=== PATIENT | male | born 1995 | race Two or more races ===

== ENCOUNTER 2025-01-07 03:15 | Emergency (ER) | payer BC, SELFPAY ==
[2025-01-07 03:20] VITALS: BP 126/77; PULSE 97; RESP 19; TEMP 36.7; O2SAT 99
[2025-01-07] MEDS: FAMOTIDINE 20 MG TABLET 40 MG PO (04:03)
[2025-01-07] MEDS: ONDANSETRON ODT 4 MG TABRAP PO (04:04)
[2025-01-07] MEDS: DICYCLOMINE 10 MG CAPSULE PO (04:04)
--- NOTE | 2025-01-07 04:16 | PD.EDNV ---
Nausea/Vomit./Diarrhea-RME/HPI General Chief complaint: Abdominal Pain Stated complaint: ABD PAIN Time Seen by Provider: 01/07/25 03:35 Arrival date/time: 01/07/25 03:15 29M with no significant PMH presents to ED with 2 days of N/V, ab cramping, and non-bloody diarrhea. Mom has similar symptoms. Limitations: no limitations Related Data Allergies Allergy/AdvReac Type Severity Reaction Status Date / Time No Known Allergies Allergy Verified 01/07/25 03:21 Review of Systems Review of Systems Systems Reviewed: All systems reviewed, normal except as documented Constitutional Constitutional: Reports system reviewed and no additional complaints, except as documented, Denies fever(s) and Denies headache(s) ENT Ears, Nose, Mouth, and Throat: Denies disequilibrium and Denies headache(s) Cardiovascular Cardiovascular: Reports system reviewed and no additional complaints, except as documented, Denies chest pain and Denies dyspnea Respiratory Respiratory: Reports system reviewed and no additional complaints, except as documented, Denies cough and Denies dyspnea Gastrointestinal Gastrointestinal: Reports system reviewed and no additional complaints, except as documented, Reports as per HPI, Reports abdominal pain, Reports diarrhea, Reports nausea and Reports vomiting Neurologic Neurologic: Reports system reviewed and no additional complaints, except as documented, Denies confusion, Denies disequilibrium and Denies headache(s) Psychiatric Psychiatric: Denies confusion Past Medical History Social History SMOKING STATUS: Never smoker ED Exam General Limitations: Present no limitations General appearance: Present alert and in no apparent distress Head Head exam: Present atraumatic Eye Eye exam: Present normal appearance, PERRL and EOMI ENT ENT exam: Present normal exam, normal oropharynx and mucous membranes moist Neck Neck exam: Present normal inspection, full ROM and trachea midline Chest Chest inspection: Present normal inspection and symmetric chest wall rise Respiratory Respiratory exam: Present normal lung sounds bilaterally Cardiovascular Cardiovascular exam: Present regular rate, normal rhythm and normal heart sounds Abdominal Exam Abdominal exam: Present soft and normal bowel sounds Extremities Exam Extremities exam: Present normal inspection and full ROM Back Exam Back exam: Present normal inspection and full ROM Neurological Exam Neurological exam: Present alert, oriented X3 and CN II-XII intact Psychiatric Psychiatric exam: Present normal affect and normal mood Skin Skin exam: Present warm, dry, intact and normal color Course Quality Measures none Orders Category Date Time Status Dicyclomine [Bentyl] Med 01/07/25 03:36 Discontinued 10 mg PO X1 ONE Famotidine [Pepcid] Med 01/07/25 03:36 Discontinued 40 mg PO X1 ONE Ondansetron Odt [Zofran Odt] Med 01/07/25 03:36 Discontinued 4 mg PO X1 ONE Vital Signs Vital signs: Vital Signs Temperature 98.1 F 01/07/25 03:20 Pulse Rate 97 01/07/25 03:20 Respiratory Rate 19 01/07/25 03:20 Blood Pressure 126/77 01/07/25 03:20 Pulse Oximetry (%) 99 01/07/25 03:20 Oxygen Delivery Method Room Air 01/07/25 03:20 O2 at 99% on RA and WNLs Nausea/Vomiting/Diarrhea MDM Narrative MDM Narrative:: 29M with no significant PMH presents to ED with 2 days of N/V, ab cramping, and non-bloody diarrhea. Mom has similar symptoms. Physical exam reveals no ab tenderness. Patient is afebrile, calm, and alert. Patient data External records reviewed:: None Clinical information provided by:: patient Social determinants that could affect healthcare access:: none Patient has the following chronic illnesses:: nonenone How is presenting disease/condition affected by chronic disease/condition?: no chronic disease Evaluation data The following diagnostics were reviewed and interpreted by me:: other (specify) (none) Lab and/or radiology exams considered but not ordered:: not ordered Interpretation Summary: n/a Medications / Prescriptions Medications / Prescriptions considered but not ordered:: ordered Medication administrations:: Medication Administration History Discontinued Medications Dicyclomine HCl (Dicyclomine 10 Mg Capsule) 10 mg PO X1 ONE Stop: 01/07/25 03:37 Last Admin: 01/07/25 04:04 Dose: 10 mg Documented By: NASRIN Famotidine (Famotidine 20 Mg Tablet) 40 mg PO X1 ONE Stop: 01/07/25 03:37 Last Admin: 01/07/25 04:03 Dose: 40 mg Documented By: NASRIN Ondansetron HCl (Ondansetron Odt 4 Mg Tabrap) 4 mg PO X1 ONE; Protocol Stop: 01/07/25 03:37 Last Admin: 01/07/25 04:04 Dose: 4 mg Documented By: NASRIN above Consultations Consultation(s) initiated? (list below): No Diagnosis Nausea Differential Diagnosis: traveler's diarrhea, food poisoning, gastroenteritis, clostridium difficile infection, drug-induced nausea and vomiting and dehydration Most likely diagnosis given after review of the tests above:: gastroenteritis Admission Indicated Admission indicated?: not indicated Admission Request Was there a request for admission?: No Disposition Plan Disposition Plan: Discharge Discharge Attestation Discharge Attestation: The patient and all family members were given an opportunity to ask questions and understood the discharge instructions. Discharge instructions specifically effects, indications for sooner follow up or return to the emergency department, and the expected course of current diagnosis. Patient condition: Stable Discharge Plan Prescriptions/Referrals Referrals: No Primary/Family,Physician [Primary Care Provider] - In 1 week Patient/Caregiver Discharge Instructions Print Language: Moldovan
--- NOTE | 2025-01-07 05:02 | PD.EDRME ---
Rapid Medical Screening Exam RME Arrival date/time: 01/07/25 03:15 29M with no significant PMH presents to ED with 2 days of N/V, ab cramping, and non-bloody diarrhea. Mom has similar symptoms. Chief Complaint: Abdominal Pain Time Seen by Provider: 01/07/25 03:35 Vital signs: Vital Signs Temperature 98.1 F 01/07/25 03:20 Pulse Rate 97 01/07/25 03:20 Respiratory Rate 19 01/07/25 03:20 Blood Pressure 126/77 01/07/25 03:20 Pulse Oximetry (%) 99 01/07/25 03:20 Oxygen Delivery Method Room Air 01/07/25 03:20
[2025-01-07] MEDS: HYDROcodone/APAP 5/325 TABLET 1 TAB PO (05:06)
[2025-01-07 05:59] LABS: Basophils % (Auto) 0 % (0-2.5); Eosinophils # (Auto) 0.3 Thou/mm3 (0.0-0.5); Eosinophils % (Auto) 2 % (0-10); Hematocrit 39.5 % (41.0-53.0); Hemoglobin 14.1 g/dL (13.5-16.0); Immature Granulocytes % (Auto) 0 % (0-0); Immature Granulocytes Auto 0.06 Thou/mm3 (0.00-0.00); Lymphocytes # (Auto) 1.7 Thou/mm3 (1.0-4.8); Lymphocytes % (Auto) 12 % (10-50); Mean Corpuscular HGB Conc 35.7 g/dl (31.0-37.0); Mean Corpuscular Hemoglobin 29.4 pg (25.0-35.0); Mean Corpuscular Volume 82 fL (80-100); Monocytes # (Auto) 1.4 Thou/mm3 (0.0-0.8); Monocytes % (Auto) 10 % (0-12); Neutrophils # (Auto) 10.5 Thou/mm3 (1.8-7.7); Neutrophils % (Auto) 75 % (37-80); Nucleated Red Blood Cell % 0 /100 WBC (0); Platelet Count 292 Thou/mm3 (140-440); RDW Standard Deviation 37.5 fL (35.1-43.9); White Blood Count 13.9 Thou/mm3 (3.8-10.6)
[2025-01-07 06:06] LABS: Alanine Aminotransferase 43 U/L (10-49); Albumin, Serum 4.7 gm/dL (3.5-5.0); Albumin/Globulin Ratio 1.6 (1.2-2.2); Alkaline Phosphatase 105 U/L (46-116); Anion Gap 11 (7-16); Aspartate Amino Transferase 67 U/L (0-34); BUN/Creatinine Ratio 10 Ratio (12-20); Bilirubin,Total 0.7 mg/dL (0.3-1.2); Blood Urea Nitrogen 9 mg/dL (9-23); Calcium 9.1 mg/dL (8.3-10.6); Calcium (Corrected) 9.1 mg/dL (8.5-10.1); Carbon Dioxide 26.1 mMol/L (20.0-31.0); Chloride 105 mMol/L (98-107); Creatinine (Component) 0.9 mg/dL (0.6-1.3); Estimated Creatinine Clearance 115.2 mL/min (>60); Globulin 2.9 gm/dL (2.3-3.5); Glucose 102 mg/dL (74-106); Lipase 219 U/L (12-53); Osmolality,Calculated 281 (275-295); Potassium 3.2 mMol/L (3.4-5.1); Sodium 142 mMol/L (136-145); Total Protein 7.6 gm/dL (5.7-8.2); eGFR > 60 See Note
--- NOTE | 2025-01-07 06:42 | EDNOTE_ITS ---
ED Abdominal Pain RME/HPI General Chief Complaint: Abdominal Pain Stated complaint: ABD PAIN Time seen by provider: 01/07/25 03:35 Arrival date/time: 01/07/25 03:15 RME / HPI RME / HPI narrative: 01/07/25 03:15 29M with no significant PMH presents to ED with 2 days of N/V, ab cramping, and non-bloody diarrhea. Mom has similar symptoms. DR. JAEGER MAIN ED EVALUATION: 29 year old male with no significant medical history presents to the ED for evaluation of worsening abdominal pain. The patient reports that the pain began three days ago, initially described as cramping located most to the lower abdomen, and was associated with approximately 10 episodes of watery diarrhea. This morning, he woke from sleep with severe epigastric pain, described as aching and rated as severe. Accompanied by nausea and one episode of vomiting. His reports that the patient had a fever three days ago, but none in the last 24 hours. The patient denies black or bloody stools, chest pain, cough, or urinary symptoms. The patient admits to occasional alcohol use, most recent intake being several months ago. Related Data Allergies Allergy/AdvReac Type Severity Reaction Status Date / Time No Known Allergies Allergy Verified 01/07/25 03:21 Review of Systems Review of Systems Systems Reviewed: All systems reviewed, normal except as documented Past Medical History Past Medical History CARDIAC: Negative Cardiac Disorders or Congestive Heart Failure RESPIRATORY: Negative Chronic Obstructive Pulmonary Disease (COPD) or Asthma GENITOURINARY: Negative Renal Disease ENDOCRINE: Negative Diabetes Mellitus Type 1 or Diabetes Mellitus Type 2 HEMATOLOGIC: Negative Sickle Cell Disease Family History FAMILY HISTORY: Positive Family Cardiac Disorders; Negative Family Cancer Social History SMOKING STATUS: Never smoker ED Exam Narrative Physical exam: GENERAL APPEARANCE: AxOx4, no obvious distress, nontoxic appearing HEENT: NC, AT. MMM. EOMI, clear conjunctiva, oropharynx clear. NECK: Supple without lymphadenopathy. No stiffness or restricted ROM. HEART: Normal rate and regular rhythm, normal S1/S1, no m/r/g LUNGS: CTAB, moving air well. No crackles or wheezes are heard. ABDOMEN: Soft, nontender, nondistended with good bowel sounds heard. BACK: No midline C/T/L spine pain or deformity, No CVAT, no obvious deformity. EXTREMITIES: Without cyanosis, clubbing or edema. MUSCULOSKELETAL: FROM of all major joints, no chest tenderness NEUROLOGICAL: Grossly nonfocal. Alert and oriented, moving all 4 extremities. CN not formally tested but appear grossly intact. Skin: Warm and dry without any rash. Course Quality Measures none Orders Category Date Time Status CT Screening NOW Care 01/07/25 07:[address] abdomen pelvis w con Stat Exams 01/07/25 07:09 Completed CBC Stat Lab 01/07/25 05:30 Completed CMP [Comprehensive Metabolic Panel] Stat Lab 01/07/25 05:30 Completed Lipase Stat Lab 01/07/25 05:30 Completed Dicyclomine [Bentyl] Med 01/07/25 03:36 Discontinued 10 mg PO X1 ONE Famotidine [Pepcid] Med 01/07/25 03:36 Discontinued 40 mg PO X1 ONE HYDROcodone*/APAP 5/325 [Devine 5/325] Med 01/07/25 05:01 Discontinued 1 tab PO X1 ONE Ondansetron Odt [Zofran Odt] Med 01/07/25 03:36 Discontinued 4 mg PO X1 ONE Reevaluation(s) Reevaluation #1: Patient remains clinically stable throughout the emergency department visit. We reviewed all the results, analysis, and treatment plans. Patient is amenable to discharge. Strict return precautions were outlined. Patient was discharged in stable condition. Time: 10:55 Vital Signs Vital signs: Vital Signs Temperature 98.1 F 01/07/25 03:20 Pulse Rate 97 01/07/25 03:20 Respiratory Rate 19 01/07/25 03:20 Blood Pressure 126/77 01/07/25 03:20 Pulse Oximetry (%) 99 01/07/25 03:20 Oxygen Delivery Method Room Air 01/07/25 03:20 Pulse ox is 99% on room air which is adequate. Abdominal Pain MDM MDM Narrative MDM Narrative:: Jo Ann Yoon am scribing for and in the presence of Dr. Jaeger. 29 year old male with no significant past medical history who presents to the ED with worsening abdominal pain. Accompanied by approximately 10 episodes of watery diarrhea. This morning woke up with severe epigastric pain, accompanied by nausea and one episode of vomiting. Denies black or bloody stools. States he drinks alcohol once in a while and last consumed several months ago. On exam, the patient is in no acute distress, with no abdominal tenderness. Labs revealed elevated lipase at 219, as well as an elevated AST at 67. Given lab findings the possibility of pancreatitis was considered. CT abdomen/pelvis performed and was negative for pancreatitis. Patient was treated with famotidine, zofran, dicyclomine, and Devine with improvement in symptoms. Patient data External records reviewed:: None (No previous ED visits for review ) Clinical information provided by:: patient Social determinants that could affect healthcare access:: alcohol use (last used months ago ) Patient has the following chronic illnesses:: None How is presenting disease/condition affected by chronic disease/condition?: no chronic disease Evaluation data The following diagnostics were reviewed and interpreted by me:: lab results and radiology exam(s) Lab and/or radiology exams considered but not ordered:: None Interpretation Summary: Ordering Physician: Aric Jaeger MD Date of Service: 01/07/25 Procedure(s): CT abdomen pelvis w con Accession Number(s): [id number] cc: Aric Jaeger MD; Marty Stewart MD; NO PRIMARY/FAMILY,PHYSICIAN~ Examination: CT abdomen with intravenous contrast CT pelvis with intravenous contrast 2-D coronal reconstructions 2-D sagittal reconstructions Date and time of exam:January 07, 2025 0832 hours INDICATIONS: Abdominal pain epigastric pain and vomiting today. Elevated lipase on laboratory examination today CTDI: vol (mGy) 8.11 DLP: (mGycm) 521 Technique: Multiple axial sections of the abdomen and pelvis have been obtained. 64 slice high-resolution scanner used. 3 mm axial sections have been obtained, post intravenous injection 60 cc [id number] 2-D sagittal, coronal reconstructions obtained. Low dose protocols were performed. One or more of the following dose reduction techniques were used; automated exposure control, adjustment of the mA and/or KV according to patient size, use of iterative reconstruction technique. Findings: No focal liver or splenic lesions Contracted gallbladder No peripancreatic edema No extrahepatic biliary tract dilatation No renal or ureteral calculi, no hydronephrosis Aorta normal size Normal appendix A few loops of fluid distended small bowel in the lower abdomen Colonic diverticulosis, no diverticulitis Urinary bladder intact No prostatomegaly IMPRESSION: No peripancreatic edema Normal appendix Mild small bowel ileus Dictated By:Marty Stewart MD Signed By:<Electronically signed by Marty Stewart MD in OV>01/07/25 0948 Medications / Prescriptions Medications or Prescriptions considered but not ordered:: None Medication administrations:: Medication Administration History Discontinued Medications Hydrocodone Bitart/Acetaminophen (Hydrocodone/Apap 5/325 Tablet) 1 tab PO X1 ONE Stop: 01/07/25 05:02 Last Admin: 01/07/25 05:06 Dose: 1 tab Documented By: NASRIN Dicyclomine HCl (Dicyclomine 10 Mg Capsule) 10 mg PO X1 ONE Stop: 01/07/25 03:37 Last Admin: 01/07/25 04:04 Dose: 10 mg Documented By: NASRIN Famotidine (Famotidine 20 Mg Tablet) 40 mg PO X1 ONE Stop: 01/07/25 03:37 Last Admin: 01/07/25 04:03 Dose: 40 mg Documented By: NASRIN Ondansetron HCl (Ondansetron Odt 4 Mg Tabrap) 4 mg PO X1 ONE; Protocol Stop: 01/07/25 03:37 Last Admin: 01/07/25 04:04 Dose: 4 mg Documented By: NASRIN See above Consultations Consultation(s) initiated? (list below): No Diagnosis Differential diagnosis abdominal pain: abdominal pain, calculus of kidney, diverticulitis, gastroenteritis and pancreatitis Most likely diagnosis given after review of the tests above:: Gastroenteritis Admission Indicated Admission indicated?: not indicated Admission Request Was there a request for admission?: No Disposition Plan Disposition Plan: Discharge Discharge Attestation Discharge Attestation: The patient and all family members were given an opportunity to ask questions and understood the discharge instructions. Discharge instructions specifically effects, indications for sooner follow up or return to the emergency department, and the expected course of current diagnosis. Patient condition: Stable Discharge Plan Plan Patient Disposition: HOME (Self Care) Prescriptions/Referrals Referrals: No Primary/Family,Physician [Primary Care Provider] - In 1 week Problem List Clinical Impression: Gastroenteritis Patient/Caregiver Discharge Instructions Education Materials: ED Food Poison Or Gastroenteritis Additional Instructions: You can take [id number] Tylenol as needed for pain. Drink plenty of fluids. I recommend a bland diet, avoiding sugary foods and dairy. Follow-up with your primary care doctor in 7 to 10 days if symptoms or not improving. You can return to the emergency department sooner symptoms worsen or if notice any new, concerning issues. Print Language: Romansh Stand Alone Forms: Bere Award Info., Patient Portal Info Letter
--- NOTE | 2025-01-07 07:09 | XR_ITS ---
Examination: CT abdomen with intravenous contrast CT pelvis with intravenous contrast 2-D coronal reconstructions 2-D sagittal reconstructions Date and time of exam:January 07, 2025 0832 hours INDICATIONS: Abdominal pain epigastric pain and vomiting today. Elevated lipase on laboratory examination today CTDI: vol (mGy) 8.11 DLP: (mGycm) 521 Technique: Multiple axial sections of the abdomen and pelvis have been obtained. 64 slice high-resolution scanner used. 3 mm axial sections have been obtained, post intravenous injection 60 cc [id number]-[id number] 2-D sagittal, coronal reconstructions obtained. Low dose protocols were performed. One or more of the following dose reduction techniques were used; automated exposure control, adjustment of the mA and/or KV according to patient size, use of iterative reconstruction technique. Findings: No focal liver or splenic lesions Contracted gallbladder No peripancreatic edema No extrahepatic biliary tract dilatation No renal or ureteral calculi, no hydronephrosis Aorta normal size Normal appendix A few loops of fluid distended small bowel in the lower abdomen Colonic diverticulosis, no diverticulitis Urinary bladder intact No prostatomegaly IMPRESSION: No peripancreatic edema Normal appendix Mild small bowel ileus
[2025-01-07 07:12] VITALS: BP 111/62; PULSE 82; RESP 16; TEMP 37; O2SAT 97
[2025-01-07 10:12] VITALS: BP 103/70; PULSE 61; RESP 17; TEMP 36.3; O2SAT 97
[2025-01-07 11:08] VITALS: BP 105/61; PULSE 69; RESP 16; TEMP 36.6; O2SAT 99
== END 2025-01-07 11:12 | disposition home or self-care (01) ==
PROVIDERS: Physician Assistant; Emergency Provider Emergency Medicine
DX: K52.9 Noninfective gastroenteritis and colitis, unspecified (principal); K56.7 Ileus, unspecified
CPT/HCPCS: 36415; 74177; 80053; 83690; 85025; 99285; A4649; Q0162; Q9967; A9270